=== PATIENT | female | born 1985 | race American Indian/Alaskan Native ===

== ENCOUNTER 2022-07-04 09:18 | Emergency (ER) | payer SELFPAY ==
[2022-07-04] MEDS ORDERED: LIDOCAINE (1%) 10 MG/1 ML VIAL 20 ML MDV INFILTRATI ONE (10:22)
[2022-07-04] MEDS ORDERED: cephALEXin 500 MG CAP PO ONE (10:22)
[2022-07-04] MEDS ORDERED: traMADol 50 MG TAB PO ONE (10:22)
--- NOTE | 2022-07-04 10:38 | Emergency Department Report ---
ED General Adult HPI - General Chief complaint: Skin/Abscess/Foreign Body Stated complaint: HEAD PAIN Time Seen by Provider: 07/04/22 10:23 Source: patient Mode of arrival: Ambulatory Limitations: No Limitations - History of Present Illness Initial comments: Is a 36-year-old female who presents for right posterior scalp abscess x1 week patient denies diabetes earlier there is no fevers no chills no nausea or vomiting. However has had similar problem with an infected cyst in the same location in the past. Pain described at 5/10 exacerbated by palpation. Pain is relieved by nothing tried. - Related Data Previous Rx's Medication Instructions Recorded Last Taken Type cephALEXin [Keflex] 500 mg PO Q8HR 7 Days #21 cap 07/04/22 Unknown Rx traMADoL [Ultram] 50 mg PO Q6HR PRN #12 tablet 07/04/22 Unknown Rx Allergies Allergy/AdvReac Type Severity Reaction Status Date / Time No Known Allergies Allergy Unverified 07/04/22 09:20 ED Review of Systems ROS: Stated complaint: HEAD PAIN Other details as noted in HPI Constitutional: denies: chills, fever Eyes: denies: eye pain, eye discharge, vision change ENT: denies: ear pain, throat pain Respiratory: denies: cough, shortness of breath, wheezing Cardiovascular: denies: chest pain, palpitations Endocrine: no symptoms reported Gastrointestinal: denies: abdominal pain, nausea, diarrhea Genitourinary: denies: urgency, dysuria, discharge Musculoskeletal: denies: back pain, joint swelling, arthralgia Skin: other (abscess scalp ) Neurological: denies: headache, weakness, paresthesias Psychiatric: denies: anxiety, depression Hematological/Lymphatic: denies: easy bleeding, easy bruising ED Past Medical Hx - Past Medical History Previous Medical History?: Yes Additional medical history: ENDOMETRIOSIS - Surgical History Past Surgical History?: No - Medications Home Medications: Home Medications Medication Instructions Recorded Confirmed Last Taken Type cephALEXin [Keflex] 500 mg PO Q8HR 7 Days #21 cap 07/04/22 Unknown Rx traMADoL [Ultram] 50 mg PO Q6HR PRN #12 tablet 07/04/22 Unknown Rx ED Physical Exam - General Limitations: No Limitations General appearance: alert, in no apparent distress - Head Head exam: Present: normocephalic - Expanded Head Exam Expanded Head exam: Present: other (Abscess posterior scalp warm at 30 cm fluctuant erythema no drainage) - Eye Eye exam: Present: normal appearance, EOMI Pupils: Present: normal accommodation - ENT ENT exam: Present: normal orophraynx, mucous membranes moist - Neck Neck exam: Present: normal inspection, full ROM. Absent: tenderness - Respiratory Respiratory exam: Present: normal lung sounds bilaterally. Absent: respiratory distress, wheezes - Cardiovascular Cardiovascular Exam: Present: regular rate, normal heart sounds - GI/Abdominal GI/Abdominal exam: Present: soft, normal bowel sounds - Rectal Rectal exam: Present: deferred - Extremities Exam Extremities exam: Present: normal inspection, full ROM. Absent: tenderness - Back Exam Back exam: Present: normal inspection, full ROM. Absent: CVA tenderness (R), CVA tenderness (L) - Neurological Exam Neurological exam: Present: alert, oriented X3 - Psychiatric Psychiatric exam: Present: normal affect, normal mood - Skin Skin exam: Present: warm, dry, intact, normal color, erythema (Abscess right posterior scalp erythema noted fluctuance, warm to touch.). Absent: rash ED Course Vital Signs 07/04/22 09:25 Temperature 98.5 F Pulse Rate 121 H Respiratory 20 Rate Blood Pressure 129/82 O2 Sat by Pulse 98 Oximetry - I & D Right Posterior Occipital Type of Procedure: Simple Site: 1x3 cm Blade Size: 11 I & D Procedure: betadine prep, sterile drapes applied, sterile dressing applied, gauze wick placed Progress: 3 sonometer abscess infected cyst posterior scalp site clean with Betadine solution, anesthesia with 1% lidocaine x3 cc anesthesia was achieved. Incision with 11 blade scalpel x1 inch. Moderate purulent drainage. Loculations broken up with 6 times blunt forceps moderate purulent amount. Site irrigated 50 cc sterile saline. Sterile dressing applied. Bleeding controlled patient tolerated procedure with minimal distress. Patient given wound care instructions. Including symptoms of infection and antibiotic therapy. Patient verbalized agreement and understanding of same. ED Medical Decision Making - Medical Decision Making Infected cyst right posterior scalp. See I&D note. Patient given wound care instructions. Including symptoms of infection, antibiotic therapy, follow-up with general surgery, and return to emergency department if symptoms get worse. Patient verbalized agreement and understanding with discharge plan. Patient DC'd home in stable condition at this time. Dressing remains intact, bleeding is controlled. Critical care attestation.: If time is entered above; I have spent that time in minutes in the direct care of this critically ill patient, excluding procedure time. ED Disposition Clinical Impression: Infected cyst of skin Disposition: 01 HOME / SELF CARE / HOMELESS Is pt being admited?: No Does the pt Need Aspirin: No Condition: Stable Instructions: Epidermal Cyst, Skin Abscess, [id number] Additional Instructions: Take medications as prescribed, wash with soap and water daily, sterile dressing daily, follow-up with general surgery in 2 to 3 days. Turn to emergency department if symptoms worsen. Prescriptions: cephALEXin [Keflex] 500 mg PO Q8HR 7 Days #21 cap traMADoL [Ultram] 50 mg PO Q6HR PRN #12 tablet PRN Reason: Pain Referrals: ARIELA MUÑOZ DO [Staff Physician] - 3-5 Days Forms: Work/School Release Form(ED) Time of Disposition: 10:52
[2022-07-04] MEDS ORDERED: IBUPROFEN 800 MG TAB PO ONE (12:12)
[2022-07-04 12:34] VITALS: BP 133/86
== END 2022-07-04 12:41 | disposition home or self-care (01) ==
LOC: ED 09:18
DX: L72.8 Other follicular cysts of the skin and subcutaneous tissue (principal); L02.811 Cutaneous abscess of head [any part, except face]; K08.89 Other specified disorders of teeth and supporting structures
CPT/HCPCS: 99282